=== PATIENT | female | born 1995 | race Caucasian/White ===

== ENCOUNTER 2020-10-03 12:46 | Outpatient (REF) | payer OTHER, SELFPAY ==
[2020-10-03 14:07] LABS: Basophils Absolute Auto 0.1 X10*3/uL (0.0-0.2); Basophils Percent Auto 0.3 % (0-2); Eosinophils Absolute Auto 0.1 X10*3/uL (0.0-0.4); Eosinophils Percent Auto 0.7 % (0-4); Hematocrit 43.3 % (37-47); Hemoglobin 14.3 g/dl (12.0-16.0); Imm Gran Abs Auto 0.08 X10*3/uL (0.00-0.03); Imm Gran Pct Auto 0.4 % (0.0-0.4); Lymphocytes Absolute Auto 2.8 X10*3/uL (1.2-4.9); Lymphocytes Percent Auto 15.3 % (20-40); MANUAL DIFF FLAG SCAN; Mean Corpuscular Hemoglobin 30.4 pg (27.0-33.0); Mean Corpuscular Volume 91.9 fL (80-98); Mean Platelet Volume 10.7 fL (9.4-12.3); Monocytes Absolute Auto 1.6 X10*3/uL (0.1-1.2); Monocytes Percent Auto 8.8 % (2-11); Neutrophils Absolute Auto 13.7 X10*3/uL (2.0-8.3); Neutrophils Percent Auto 74.5 % (45-73); Platelet Count 257 X10*3/uL (160-400); Red Blood Count 4.71 X10*6/uL (4.20-5.50); Red Cell Distribution Width 12.6 % (11.0-16.0); SCAN SMEAR FLAG 1; White Blood Count 18.4 X10*3/uL (4.8-10.8)
[2020-10-03 14:33] LABS: SLIDE REVIEW VERIFIED
[2020-10-03 14:36] LABS: Alanine Aminotransferase 11 U/L (0-31); Albumin Level 4.4 g/dL (3.5-5.0); Alkaline Phosphatase 66 U/L (39-117); Anion Gap 12 (12-20); Aspartate Amino Transferase 13 U/L (5-31); Bilirubin Total 1.1 mg/dL (0.0-1.0); Blood Urea Nitrogen 13 mg/dL (9-16); Calcium 9.4 mg/dL (8.4-10.2); Carbon Dioxide 26 mmol/L (22-29); Chloride 105 mmol/L (96-108); Cholesterol 170 mg/dL; Estimated Glomerular Filt Rate > 60; Glucose Fasting 73 mg/dL (60-99); HDL Cholesterol 52 mg/dL; LDL Cholesterol Calculated 98 mg/dl; Potassium 4.1 mmol/L (3.3-5.1); Sodium 139 mmol/L (135-145); Total Protein 7.1 g/dL (6.5-8.0); Triglycerides 101 mg/dL
[2020-10-03 14:59] LABS: TSH reflex Free T4 0.69 uIU/mL (0.32-4.0)
== END 2020-10-03 12:47 | disposition home or self-care (01) ==
LOC: HO.HMGCLDS 12:46
PROVIDERS: PCP Internal Medicine; Visit Provider Hospitalist
DX: R53.83 Other fatigue (principal); Z83.42 Family history of familial hypercholesterolemia
CPT/HCPCS: 36415; 80053; 80061; 84443; 85025

== ENCOUNTER 2020-10-26 12:00 | Outpatient (RCR) | payer OTHER, SELFPAY ==
--- NOTE | 2020-10-12 12:16 | PC.ADMIT ---
Patient is a 24 year old female who was referred to the PHP program by Dr Tamayo d/t patient's increase in depressive symptoms with increased dissociative episodes and some PTSD sxs. Patient also reports struggling with past trauma history. Patient graduated from [employer] this year and is waiting to take her board exams as she wants to work on her mental health and feel more stable. Patient is alert and oriented x4. Calm and cooperative. Presents with depressed mood, blunted affect. Denied SI or thoughts to harm self. Hx of self harm, last cut herself in June 2020 after she found out her boyfriend at the time cheated on her. She currently is not prescribed medications. She does not have a therapist and prescriber at this time.
[2020-10-12 12:18] VITALS: BMI 23.6
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
--- NOTE | 2020-10-15 14:12 | PC.NURSE ---
Gave patient information regarding PCP at [facility]. Pt limited regarding providers who take her insurance. Patient stated she will call [facility] when she gets off the phone with me. Patient aware that there is walk in hours at [facility] however you need to be a patient before you can utilize walk in hours. Patient also will be referred to [facility] for a therapist and psychiatrist by Macey Villanueva Also checked in with patient regarding her mental status as patient expressed passive SI in group. Patient denied plan or intent. She stated she is safe and plans on being in groups tomorrow. Patient frustrated regarding pain issues and wants to get in to see a PCP.
--- NOTE | 2020-10-15 14:45 | PC.NURSE ---
Case opened in treatment team
--- NOTE | 2020-10-16 14:12 | PC.NURSE ---
Daisy was concerned that she may have a rash and is taking Lamictal. Patient has a history of self harm including cutting, scratching, and purging. She stated yesterday she did not want to purge so she took a hot shower to distract herself however instead of purging she stated she scratched herself as she was practicing harm reduction. Patient stated she did not break the skin however has scratch pineda/lines on her legs and stomach and some small broken blood vessels in the same areas where she scratched herself. Denied any rash anywhere on her body. Stated her skin is reacting to her scratching herself. Sweetie Garner NP is aware. Patient to continue Lamictal. Reviewed coping skills with patient to deal with strong emotions without harming herself. Patient bought a notebook and plans on keeping a journal. Patient stated she is feeling better today and plans on coming to the program tomorrow.
--- NOTE | 2020-10-18 17:32 | P.PNPSP_ITS ---
Subjective Subjective Date of Service: 10/18/20 Reason For Visit: Borderline personality D/o, Depression Interim History: Patient reports doing well with lamictal, which was started last week. She had a minimal rash, which she attributes to scratching, not the medication. She says overall her mood has been somewhat better. She is still interested in TMS, and believes that it will help with borderline personality d/o, PTSD, and the depression. She would like to remain on the lamictal for now. Will continue lamictal 25mg daily for now, and follow-up next week. Script sent to pharmacy. Medication Compliance: Yes Side effects from medications: No Attending Groups: Yes Review of Systems Review of Systems Yes all other systems are reviewed and are negative Mental Status Exam Mental Status Exam Patient Appearance: Well Grooomed and Appropriate Patient Orientation: Person, Place, Time and Situation Level of Consciousness: Awake and Appropriate Patient Behavior: Appropriate and Cooperative Mood Description: Calm and Appropriate Affect Description: Appropriate Patient Cognition Impaired: No Ability to Follow Directions: Excellent Speech Pattern: Clear Memory Description: Intact Hallucinations: None Delusions: Not Present Thought Process: Intact Thought Content: positive for Intact Depressive Symptoms: Increased Anxiety Judgement: Good Diagnostics Vital Signs (24Hr): Body Mass Index 23.6 Assessment & Plan Assessment & Plan (1) Borderline personality disorder: Status: Acute Code(s): F60.3 - Borderline personality disorder Assessment and Plan: Continue to assess. Considering TMS, has read that it can help with BPD. (2) Bipolar II disorder: Status: Acute Code(s): F31.81 - Bipolar II disorder Assessment and Plan: Patient reports doing well with lamictal, which was started last week. She had a minimal rash, which she attributes to scratching, not the medication. She says overall her mood has been somewhat better. She is still interested in TMS, and believes that it will help with borderline personality d/o, PTSD, and the depression. She would like to remain on the lami ctal for now. Will continue lamictal 25mg daily for now, and follow-up next week. Script sent to pharmacy. Certification I certify that partial hospital treatment is medically necessary due to the symptoms and problems resulting from the patient's mental illness and the failure to treat the patient at the partial hospital level of care would likely result in the patient requiring inpatient psychiatric care which could not be prevented at a less intensive level of care. Greater than 50% of the session was spent on counseling and/or coordination of care Discharge Plan Discharge Attending provider: Valerio Turner Medications: New lamotrigine 25 mg tablet 25 mg PO DAILY 7 Days Qty: 7 RF: 0 Telehealth Telehealth Location of provider rendering services: practice address Location of patient: address on file Patient Identification confirmed using: Name, : Yes Telehealth method: video Patient verbally consented to treatment: Yes Patient verbally consented to billing insurance company: Yes Patient informed of any privacy concerns related to visit: Yes Time spent with patient (mins): 15
--- NOTE | 2020-10-22 13:30 | P.PNPSP_ITS ---
Subjective Subjective Date of Service: 10/22/20 Reason For Visit: Borderline personality D/o, Depression Guardianship: No Medical Problems Affecting Mental Status: No Interim History: Daisy reports that she had a bit of a set-back over the eekend, but is doing okay now . She did not elaborate further. She did however state that she wishes to remain on Lamictal, and that she is having no side effects. We discussed dose titration schedule and that after 14 days at 25 mg, dose would be increased to 50 mg daily x2 weeks. She was in agreement with this, and she asked that a script be sent to her pharmacy at [facility] in [place] for 50 mg daily, to start this Thursday. She states that she believes the medication is helping somewhat. No SI or other safety concerns. Daisy has an appointment with Dr. Tamayo on October 29, to further discuss TMS treatment. She states that she believes this will be helpful in treating both her depression and borderline personality disorder. She says she has done research on the subject, and that EMS, according to her research, has not been shown to be any more activating than SSRIs. She says she has been on SSRIs in the past, shows she believes she will be able to tolerate the treatment. She says she plans to remain on Lamictal and pursue TMS. She says after meeting with Dr. Tamayo, if it is advised that she either stop the medication or not pursue TMS, she will consider the options. Script sent to [facility] for lamictal 50mg daily, a 14-day supply, to start October 27. Medication Compliance: Yes Side effects from medications: No Attending Groups: Yes Review of Systems Review of Systems Yes all other systems are reviewed and are negative Mental Status Exam Mental Status Exam Patient Appearance: Well Grooomed and Appropriate Patient Orientation: Person, Place, Time and Situation Level of Consciousness: Appropriate and Alert Patient Behavior: Appropriate and Cooperative Mood Description: Appropriate Affect Description: Appropriate and Flat (flat affect, no mood restriction or lability noted. ) Patient Cognition Impaired: No Ability to Follow Directions: Excellent Speech Pattern: Clear Memory Description: Intact Hallucinations: None (None reported, none noted. ) Delusions: Not Present Thought Process: Intact Thought Content: positive for Intact Judgement: Good Judgement and Insight: Judgment and insight appear grossly intact during the encounter. Diagnostics Vital Signs (24Hr): Body Mass Index 23.6 Assessment & Plan Assessment & Plan (1) Bipolar II disorder: Status: Acute Code(s): F31.81 - Bipolar II disorder Assessment and Plan: No restriction or lability of mood reported, presented with flat affect during encounter. Patient requesting to remain on Lamictal, would like dose increased after the 14 days of 25 mg daily. Script for Lamictal 50 mg daily times 14 days, start October 27, sent to her pharmacy. No safety concerns. Certification I certify that partial hospital treatment is medically necessary due to the symptoms and problems resulting from the patient's mental illness and the failure to treat the patient at the partial hospital level of care would likely result in the patient requiring inpatient psychiatric care which could not be prevented at a less intensive level of care. Greater than 50% of the session was spent on counseling and/or coordination of care Discharge Plan Discharge Attending provider: Valerio Turner Medications: New lamotrigine [Lamictal] 25 mg tablet 50 mg PO DAILY 14 Days Qty: 28 RF: 0 Telehealth Telehealth Location of provider rendering services: practice address Location of patient: address on file Patient Identification confirmed using: Name, : Yes Telehealth method: video Patient verbally consented to treatment: Yes Patient verbally consented to billing insurance company: Yes Patient informed of any privacy concerns related to visit: Yes Time spent with patient (mins): 15
== END 2020-10-29 07:38 | disposition home or self-care (01) ==
LOC: HO.PHPA 12:00
PROVIDERS: Visit Provider Psychiatry & Neurology Psychiatry
DX: F31.81 Bipolar II disorder (principal); F60.3 Borderline personality disorder; F50.9 Eating disorder, unspecified; Z79.899 Other long term (current) drug therapy
CPT/HCPCS: 90791; 90853

== ENCOUNTER 2020-11-01 09:59 | Outpatient (REF) | payer OTHER, SELFPAY ==
[2020-11-01 11:52] LABS: Ethanol < 10 mg/dL
[2020-11-01 13:29] LABS: Amphetamine Screen Urine Not Detected (Not Detect); Barbiturates, Urine Not Detected (Not Detect); Benzodiazepines Screen Urine Not Detected (Not Detect); Cannabinoid Screen Urine Not Detected (Not Detect); Cocaine Screen Urine Not Detected (Not Detect); Opiate Screen Urine Not Detected (Not Detect); Phencyclidine Screen Urine Not Detected (Not Detect)
[2020-11-06 11:32] LABS: EDDP (Methadone Metabolite) negative; Methadone, Urine MS negative
== END 2020-11-01 10:00 | disposition home or self-care (01) ==
LOC: HO.HMGCLDS 09:59
PROVIDERS: Nurse Practitioner Psychiatric/Mental Health; PCP Physician Assistant; Visit Provider Internal Medicine
DX: Z51.81 Encounter for therapeutic drug level monitoring (principal); Z79.899 Other long term (current) drug therapy
CPT/HCPCS: 80307; 80358; 82077

== ENCOUNTER → 2020-12-03 20:25 | Outpatient (REF) | payer OTHER, SELFPAY | LOC: HO.SL 20:25 | PROVIDERS: PCP Physician Assistant; Visit Provider Physician Assistant | DX: G47.33 Obstructive sleep apnea (adult) (pediatric) (principal) | CPT/HCPCS: 95810 ==

== ENCOUNTER 2021-12-14 09:45 | Outpatient (REF) | payer BC, SELFPAY ==
[2021-12-14 10:01] LABS: MANUAL DIFF FLAG NO
[2021-12-14 10:20] LABS: Basophils Absolute Auto 0.1 X10*3/uL (0.0-0.2); Basophils Percent Auto 0.8 % (0-2); Eosinophils Absolute Auto 0.3 X10*3/uL (0.0-0.4); Eosinophils Percent Auto 4.2 % (0-4); Hematocrit 41.8 % (37.0-47.0); Imm Gran Abs Auto 0.01 X10*3/uL (0.00-0.03); Imm Gran Pct Auto 0.1 % (0.0-0.4); Lymphocytes Absolute Auto 2.9 X10*3/uL (1.2-4.9); Lymphocytes Percent Auto 40.9 % (20-40); Mean Corpuscular HGB Conc 33.5 g/dl (31.0-35.0); Mean Corpuscular Hemoglobin 29.9 pg (27.0-33.0); Mean Corpuscular Volume 89.1 fL (80.0-98.0); Mean Platelet Volume 9.8 fL (9.4-12.3); Monocytes Absolute Auto 0.7 X10*3/uL (0.1-1.2); Monocytes Percent Auto 9.1 % (2-11); Neutrophils Absolute Auto 3.2 x10*3/uL (2.0-8.3); Neutrophils Percent Auto 44.9 % (45-73); Platelet Count 296 X10*3/uL (160-400); Red Blood Count 4.69 X10*6/uL (4.20-5.50); Red Cell Distribution Width 12.8 % (11.0-16.0); White Blood Count 7.2 X10*3/uL (4.8-10.8)
[2021-12-14 10:48] LABS: Alanine Aminotransferase 13 U/L (0-31); Albumin Level 4.3 g/dL (3.5-5.0); Alkaline Phosphatase 50 U/L (39-117); Anion Gap 13 (12-20); Aspartate Amino Transferase 14 U/L (5-31); Bilirubin Total 0.8 mg/dL (0.0-1.0); Blood Urea Nitrogen 13 mg/dL (9-16); Carbon Dioxide 27 mmol/L (22-29); Chloride 105 mmol/L (96-108); Estimated Glomerular Filt Rate > 60; Glucose Random 86 mg/dL (60-115); Potassium 4.9 mmol/L (3.3-5.1); Sodium 140 mmol/L (135-145); Total Protein 6.4 g/dL (6.5-8.0)
[2021-12-14 11:10] LABS: TSH reflex Free T4 0.84 uIU/mL (0.32-4.0); Vitamin D 25-OH Total 12.6 ng/mL (>30)
[2021-12-14 11:22] LABS: Folate 10.5 ng/mL (> or = 4.0); Vitamin B12 416 pg/mL (200-900)
== END 2021-12-14 09:46 | disposition home or self-care (01) ==
LOC: HO.LAB 09:45
PROVIDERS: PCP Physician Assistant; Visit Provider Nurse Practitioner Family
DX: R51.9 Headache, unspecified (principal)
CPT/HCPCS: 36415; 80053; 82306; 82607; 82746; 84443; 85025

== ENCOUNTER 2021-12-20 10:29 | Outpatient (REF) | payer BC, SELFPAY ==
--- NOTE | ~2021-12-20 | CT_ITS ---
EXAMINATION: CT HEAD WITHOUT CONTRAST CLINICAL INFORMATION: Headache COMPARISON: None TECHNIQUE: Contiguous axial imaging was performed from the skull base to vertex without intravenous administration of contrast. This CT examination was performed using dose optimization techniques as appropriate, variously including the following: *Automated exposure control *Adjustment of mA and/or kV according to patient size (this includes techniques or standardized protocols for targeted exams where dose is matched to indication/reason for exam; i.e. extremities or head) *Use of iterative reconstruction technique DLP: 687 mGy-cm FINDINGS: There is no acute intra-axial, extra-axial bleed, masses, collection or midline shift. No acute infarction evolution. There is no edema or mass effect. The lateral ventricles are symmetrical in size and configuration without enlargement. The cortical sulci are symmetrical and normal. Bone windows reveal no calvarial abnormality. Bilateral paranasal sinuses and mastoid air cells are well-aerated. No scalp soft tissue abnormality seen. CT/CT head/brain wo con IMPRESSION: No acute intracranial process seen.
== END 2021-12-20 10:30 | disposition home or self-care (01) ==
LOC: HO.CT 10:29
PROVIDERS: PCP Physician Assistant; Visit Provider Nurse Practitioner Family
DX: R51.9 Headache, unspecified (principal)
CPT/HCPCS: 70450

== ENCOUNTER 2023-02-06 14:58 | Outpatient (AMB) | payer BC, SELFPAY ==
[2023-02-06 14:59] VITALS: BP 132/68; PULSE 68; O2SAT 100; BMI 26.1
--- NOTE | 2023-02-06 14:59 | MHC.PC.OV ---
Vital Signs 02/06/23 14:59 Height 5 ft 8 in Weight 172 lb BMI 26.1 BP 132/68 Blood Pressure Location Lt brachial Position Sitting Pulse 68 Pulse Source Pulse Oximeter Temp Source Skin Pulse Oximetry (%) 100 Oxygen Delivery Method Room Air Intake Visit Reasons: Physical exam Intake Note: Patient is here today for a physical. 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 Patient of THELMA Bravo. medical history significant for ADHD, low vitamin-D level, headache-patient reports improving-stable with p.r.n. [id number] Tylenol, enlarged tonsils-was seen by ENT provider plan for tonsillectomy, bipolar disorder-followed by Psychiatry. Patient denies shortness of breath or chest pain. Pap smear normal 2021 with [facility] per patient. Patient will call for eye and dental exams. Up-to-date with immunizations. [facility] Medical History Skin lesion Major depressive disorder, recurrent episode with atypical features Surgical History Hx of breast reduction, elective Family History Mother Mental health disorder Substance use disorder Father Mental health disorder Substance use disorder Social History Household Members: Friend(s) Housing: Apartment Alcohol intake: current Alcohol intake frequency: holidays/special occasions only Patient Tobacco Use Status: Never used Tobacco e-Cigarette/Vaping Use: Never Used Second Hand Smoke Exposure: Yes service: No Current occupational status: employed Current occupation: [employer] Cognitive needs: No Hearing needs: No Vision needs: No Questionnaire PHQ-9 Over the last 2 weeks, how often have you been bothered by any of the following problems? 1. Little interest or pleasure in doing things: not at all 2. Feeling down, depressed, or hopeless: not at all 3. Trouble falling or staying asleep, or sleeping too much: not at all 4. Feeling tired or having little energy: not at all 5. Poor appetite or overeating: not at all 6. Feeling bad about yourself - or that you are a failure or have let yourself or your family down: not at all 7. Trouble concentrating on things, such as reading the newspaper or watching television: not at all 8. Moving or speaking so slowly that other people could have noticed. Or the opposite - being so fidgety or restless that you have been moving around a lot more than usual: not at all 9. Thoughts that you would be better off or of hurting yourself in some way: not at all Total score: 0 Depression Screening Interpretation: Negative Depression Screening Done: Yes 63603 - PHQ-9 Billing: Yes Source: Developed by Drs. Carlos Fofana, Akilah Reyes, Robin Cox and colleagues, with an educational susan from [employer]. Thrive Questionnaire Date Thrive assessed: 02/06/23 I am a: Patient What is your living situation today?: I have a steady place to live Within the past 12 months, did the food you bought not last and you didn't have the money to get more?: Never true Within the past 12 months, did you worry whether your food would run out before you got money to buy more?: Never true Do you have trouble paying for medicines?: No Do you have trouble getting transportation to medical appointments?: No Do you have trouble paying your heating and electricity bill?: No Do you have trouble taking care of your child, family member or friend?: No Do you have trouble with day-to-day activities such as bathing, preparing meals, shopping, managing finances, etc.?: No Are you currently unemployed and looking for a job?: No Are you interested in more education?: No Currently or been in a relationship where the following occur: no concerns reported AUDIT C Alcohol Use Questionnaire (AUDIT-C) 1. How often do you have a drink containing alcohol?: Monthly or less 2. How many drinks containing alcohol do you have on a typical day when you are drinking?: 3 or 4 Total Score: 2 Score Reviewed/Action Taken: No JAVED-7 AMB Questionnaire JAVED-7 Date JAVED - 7 assessed: 02/06/23 Feeling nervous, anxious, or on edge: 0 = Not at all Not being able to stop or control worryin = Not at all Worrying too much about different things: 0 = Not at all Trouble relaxin = Not at all Being so restless that it is hard to sit still: 0 = Not at all Becoming easily annoyed or irritable: 0 = Not at all Feeling afraid as if something awful might happen: 0 = Not at all Total JAVED-7 score (0-4 normal; 5-9 mild; 10-14 moderate; 15-21 severe): 0 Source: Developed by Drs. Carlos Fofana, Akilah Reyes, Robin Cox and colleagues, with an educational susan from [employer]. JAVED-7 Assessment Billing JAVED-7 Assessment Tool: JAVED-7 Assessment 70743 Review of Systems Const Denies body aches, Denies chills, Denies fever(s) and Reports headache(s) (Intermittent) Eyes Denies change in vision ENT Denies dizziness, Denies otalgia, Reports headache(s) (Intermittent), Denies nasal discharge, Denies sinus pain and Denies sore throat Card Denies chest pain, Denies edema, Denies lightheadedness and Denies dyspnea Resp Denies dyspnea and Denies wheezing GI Denies abdominal pain, Denies constipation, Denies diarrhea, Denies nausea and Denies vomiting Denies dysuria Musc Denies myalgias Skin/Breast Denies rash Neuro Denies dizziness and Reports headache(s) (Intermittent) Aller/Immun Denies wheezing Physical exam (Primary Care) Vital Signs: Last Vital Signs Pulse 68 02/06/23 14:59 BP 132/68 02/06/23 14:59 Pulse Ox 100 02/06/23 14:59 Oxygen Delivery Method Room Air 02/06/23 14:59 BMI result Body Mass Index 26.1 Tobacco/Smoking Status: Tobacco use Status Tobacco use date assessed 02/06/23 02/06/23 15:01 Patient Tobacco Use Status Never used Tobacco 02/06/23 15:01 Tobacco use type 10/23/20 08:34 e-Cigarette/Vaping Use Never Used 02/06/23 15:01 PHQ-9: PHQ-9 Score PHQ-9: Total score 0 02/06/23 15:01 Depression Screening Interpretation: Negative Thrive Assessment: Date of Thrive Assessment Date Thrive assessed 02/06/23 02/06/23 15:01 Currently or been in a relationship where the following occur: no concerns reported Const General: cooperative and no acute distress Orientation/consciousness: patient oriented x3 HENMT Head: Yes normocephalic and Yes atraumatic Ears: TM's normal bilaterally Face and sinus: Yes sinuses nontender Mouth: oropharynx normal and moist mucous membranes Throat: Yes posterior oropharynx normal and Yes other (Enlarged tonsils) Eyes General: appearance normal, both eyes and all related structures Pupils: Equal, round and reactive pupils present EOM: EOMs intact bilaterally Neck Neck: Yes normal visual inspection, Yes full ROM and Yes no lymphadenopathy Thyroid: Thyroid normal Resp Effort & Inspection: normal respiratory effort and able to speak in complete sentences Auscultation: clear to auscultation bilaterally, no crackles, no rales, no rhonchi and no wheezes Cardio Rate: regular rate Rhythm: regular rhythm Heart sounds: S1 normal heart sound present, S2 normal heart sound present and no murmurs GI Palpation (GI): Soft to palpation, not firm, nontender, no guarding, not rigid and no hepatosplenomegaly Auscultation: normal bowel sounds General: No CVA tenderness Back/Spine/Pelvis Back: No CVA tenderness Skin General skin exam: no rashes or lesions noted Neuro General: patient oriented x3 Cranial nerves: Yes Equal, round and reactive pupils present Gait exam (Neuro): Normal gait present Extrem General: Yes full ROM and No edema Office Procedures Flu Questionnaire Does the patient have a severe egg allergy?: No Does the patient have severe life threatening allergies?: No Does the patient have a fever or illness today?: No Has the patient ever had Guillain-[place] Syndrome?: No Has the patient ever had any past reaction to a flu shot?: No Immunizations flu vacc [id number] 6mos up(PF) 60 mcg(15 mcgx4)/0.5 mL IM syringe Performing Provider: RICKI Rodriguez Performing Location: [facility] Administered by: ARIANNE Smart on 02/06/23 15:15 Dose Route Admin Location Dispensed Lot Number Expiration Date [employer] 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 0.5 mL IM Left Deltoid 0.5 mL [id number] 11/01/23 36700-067-29 [employer] VIS Given Date VIS Provided VIS Publication Date 02/06/23 Single Vaccine 20 Eligibility Eligibility Date Funding Source Not VFC Eligible 02/06/23 Private Assessment and Plan Assessment & Plan (1) ADHD: Code(s): F90.9 - Attention-deficit hyperactivity disorder, unspecified type Plan: Followed by Psychiatry and on lisdexamfetamine (2) Low vitamin D level: Code(s): R79.89 - Other specified abnormal findings of blood chemistry Plan: Will check vitamin-D level (3) Headache: Code(s): R51.9 - Headache, unspecified Plan: Stable with p.r.n. [id number] Tylenol (4) Annual physical exam: Code(s): Z00.00 - Encounter for general adult medical examination without abnormal findings Plan: Repeat in 1 year (5) Bipolar II disorder: Code(s): F31.81 - Bipolar II disorder Plan: Followed by Psychiatry and on Lamotrigine Orders: Orders Vitamin D 25-OH Total Today R79.89 - Other specified abnormal findings of blood chemistry Vitamin B12 and Folate Today Z00.00 - Encounter for general adult medical examination without abnormal findings Comprehensive Met. Panel Today Z00.00 - Encounter for general adult medical examination without abnormal findings Influenza [id number] Immunization Today Z23 - Encounter for immunization TSH reflex Free T4 Today Z00.00 - Encounter for general adult medical examination without abnormal findings Complete Blood Count Auto Diff Today Z00.00 - Encounter for general adult medical examination without abnormal findings Coding Level of Care Code Est Pt Prev Care 18-39y(72834) Diagnoses ADHD F90.9 Low vitamin D level R79.89 Headache R51.9 Annual physical exam Z00.00 Bipolar II disorder F31.81 Additional Codes JAVED-7 Assessment Billing - JAVED-7 Assessment Tool: JAVED-7 Assessment 04586 ([id number])
== END 2023-02-06 15:27 | disposition home or self-care (01) ==
PROVIDERS: PCP Physician Assistant; Visit Provider Nurse Practitioner Family
DX: Z00.00 Encounter for general adult medical examination without abnormal findings (principal); F90.9 Attention-deficit hyperactivity disorder, unspecified type; F31.81 Bipolar II disorder; Z23 Encounter for immunization; R79.89 Other specified abnormal findings of blood chemistry; R51.9 Headache, unspecified
CPT/HCPCS: 90471; 90686; 99395

== ENCOUNTER 2023-05-30 10:16 | Outpatient (REF) | payer BC, SELFPAY ==
[2023-05-30 11:20] LABS: MANUAL DIFF FLAG NO
[2023-05-30 11:40] LABS: Basophils Absolute Auto 0.1 X10*3/uL (0.0-0.2); Basophils Percent Auto 1.2 % (0-2); Eosinophils Absolute Auto 0.3 X10*3/uL (0.0-0.4); Eosinophils Percent Auto 3.8 % (0-4); Hematocrit 42.6 % (37.0-47.0); Hemoglobin 14.3 g/dl (12.0-16.0); Imm Gran Abs Auto 0.02 X10*3/uL (0.00-0.03); Imm Gran Pct Auto 0.3 % (0.0-0.4); Lymphocytes Absolute Auto 2.7 X10*3/uL (1.2-4.9); Mean Corpuscular HGB Conc 33.6 g/dl (31.0-35.0); Mean Corpuscular Hemoglobin 31.1 pg (27.0-33.0); Mean Corpuscular Volume 92.6 fL (80.0-98.0); Monocytes Absolute Auto 0.7 X10*3/uL (0.1-1.2); Monocytes Percent Auto 9.2 % (2-11); Neutrophils Percent Auto 50.5 % (45-73); Platelet Count 270 X10*3/uL (160-400); Red Cell Distribution Width 12.4 % (11.0-16.0); White Blood Count 7.8 X10*3/uL (4.8-10.8)
[2023-05-30 12:17] LABS: Alanine Aminotransferase 9 U/L (0-31); Albumin Level 4.2 g/dL (3.5-5.0); Alkaline Phosphatase 53 U/L (39-117); Anion Gap 12 (12-20); Aspartate Amino Transferase 12 U/L (5-31); Bilirubin Total 0.8 mg/dL (0.0-1.0); Blood Urea Nitrogen 14 mg/dL (9-16); Calcium 9.2 mg/dL (8.4-10.2); Carbon Dioxide 25 mmol/L (22-29); Chloride 108 mmol/L (96-108); Estimated Glomerular Filt Rate > 60; Glucose Random 91 mg/dL (60-115); Potassium 4.1 mmol/L (3.3-5.1); Sodium 141 mmol/L (135-145); Total Protein 6.5 g/dL (6.5-8.0)
[2023-05-30 12:22] LABS: TSH reflex Free T4 1.61 uIU/mL (0.32-4.0); Vitamin D 25-OH Total 31.4 ng/mL (>30)
[2023-05-30 12:33] LABS: Folate 9.5 ng/mL (> or = 4.0); Vitamin B12 410 pg/mL (200-900)
== END 2023-05-30 10:17 | disposition home or self-care (01) ==
LOC: HO.HMGCLDS 10:16
PROVIDERS: PCP Physician Assistant; Visit Provider Nurse Practitioner Family
DX: Z00.00 Encounter for general adult medical examination without abnormal findings (principal); R79.89 Other specified abnormal findings of blood chemistry
CPT/HCPCS: 36415; 80053; 82306; 82607; 82746; 84443; 85025

== ENCOUNTER 2024-02-11 14:18 | Outpatient (AMB) | payer BC, SELFPAY ==
--- NOTE | 2024-02-11 14:26 | A.OFFPC_ITS ---
Vital Signs 02/11/24 14:37 Height 5 ft 8 in Weight 192 lb 2 oz BMI 29.2 BP 110/62 Blood Pressure Location Lt brachial Position Sitting Pulse 64 Pulse Source Pulse Oximeter Pulse Oximetry (%) 97 Oxygen Delivery Method Room Air Intake Visit Reasons: Annual Exam Intake Note: Patient is here today for a physical. 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 Patient has a past medical history significant for major depressive disorder, bipolar disorder type 2.. Patient recently underwent a tonsillectomy and doing well. Bipolar disorder: She continues to follow in mental health med provider and feels she is stable on her current dose of Lamictal. She is looking for a new psychiatrist as her psychiatrist is retiring. .. :ADHD: Has ADHD though is not medicated at this time. 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 Vaccines: Up-to-date with tetanus, up-to-date with flu vaccine , UTD with COVID vac ( pfizer shot) [facility] Medical History (Updated 02/11/24 @ 14:57 by Kishan Bravo PA-C) Skin lesion Major depressive disorder, recurrent episode with atypical features Surgical History (Updated 02/11/24 @ 14:57 by Kishan Bravo PA-C) History of tonsillectomy Hx of breast reduction, elective Family History Mother Mental health disorder Substance use disorder Father Mental health disorder Substance use disorder Social History (Updated 02/11/24 @ 14:45 by Kishan Bravo PA-C) Household Members: Friend(s) Housing: Apartment Alcohol intake: current Alcohol intake frequency: a few times a month Patient Tobacco Use Status: Never used Tobacco e-Cigarette/Vaping Use: Never Used Second Hand Smoke Exposure: Yes Substance Use Type: Marijuana service: No Current occupational status: employed Current occupation: [employer] Cognitive needs: No Hearing needs: No Vision needs: No Questionnaire PHQ-9 Over the last 2 weeks, how often have you been bothered by any of the following problems? 1. Little interest or pleasure in doing things: not at all 2. Feeling down, depressed, or hopeless: not at all 3. Trouble falling or staying asleep, or sleeping too much: not at all 4. Feeling tired or having little energy: not at all 5. Poor appetite or overeating: not at all 6. Feeling bad about yourself - or that you are a failure or have let yourself or your family down: not at all 7. Trouble concentrating on things, such as reading the newspaper or watching television: not at all 8. Moving or speaking so slowly that other people could have noticed. Or the opposite - being so fidgety or restless that you have been moving around a lot more than usual: not at all 9. Thoughts that you would be better off or of hurting yourself in some way: not at all Total score: 0 Depression Screening Interpretation: Negative (The patient has a therapist and is currently receiving treatment.) Depression Screening Done: Yes 38244 - PHQ-9 Billing: Yes Source: Developed by Drs. Carlos Fofana, Akilah Reyes, Robin Cox and colleagues, with an educational susan from [email or web address]. Thrive Questionnaire Date Thrive assessed: 02/11/24 I am a: Patient What is your living situation today?: I have a steady place to live Within the past 12 months, did the food you bought not last and you didn't have the money to get more?: Never true Within the past 12 months, did you worry whether your food would run out before you got money to buy more?: Never true Do you have trouble paying for medicines?: No Do you have trouble getting transportation to medical appointments?: No Do you have trouble paying your heating and electricity bill?: No Do you have trouble taking care of your child, family member or friend?: No Do you have trouble with day-to-day activities such as bathing, preparing meals, shopping, managing finances, etc.?: No Are you currently unemployed and looking for a job?: No Are you interested in more education?: No Please select the resources that you would like help with: None Currently or been in a relationship where the following occur: No concerns reported THRIVE Score: 0 AUDIT C Alcohol Use Questionnaire (AUDIT-C) 1. How often do you have a drink containing alcohol?: 2-4 times a month 2. How many drinks containing alcohol do you have on a typical day when you are drinking?: 3 or 4 3. How often do you have six or more drinks on one occasion?: Less than monthly Total Score: 4 JAVED-7 AMB Questionnaire JAVED-7 Date JAVED - 7 assessed: 02/11/24 Feeling nervous, anxious, or on edge: 1 = Several days Not being able to stop or control worryin = Not at all Worrying too much about different things: 1 = Several days Trouble relaxin = Not at all Being so restless that it is hard to sit still: 0 = Not at all Becoming easily annoyed or irritable: 1 = Several days Feeling afraid as if something awful might happen: 0 = Not at all Total JAVED-7 score (0-4 normal; 5-9 mild; 10-14 moderate; 15-21 severe): 3 Source: Developed by Drs. Carlos Fofana, Akilah Reyes, Robin Cox and colleagues, with an educational susan from [email or web address]. JAVED-7 Assessment Billing JAVED-7 Assessment Tool: JAVED-7 Assessment 00596 Review of Systems Const Denies body aches, Denies chills, Denies excessive sweating, Denies fatigue, Denies fever(s) and Denies headache(s) Eyes Denies blurry vision ENT Denies dysphagia, Denies vertigo, Denies dizziness, Denies headache(s), Denies hearing loss and Denies tinnitus Card Denies chest pain, Denies chest pain with activity, Denies syncope, Denies irregular heart rhythm and Denies dyspnea Resp Denies chest congestion, Denies cough, Denies hemoptysis, Denies dyspnea and Denies wheezing GI Denies abdominal pain, Denies melena, Denies hematochezia, Denies coffee ground emesis, Denies dysphagia, Denies diarrhea, Denies nausea and Denies vomiting Denies urinary frequency, Denies dysuria, Denies urinary hesitancy and Denies urinary urgency Musc Denies arthralgias, Denies limited range of motion, Denies muscle cramps and Denies muscle weakness Skin/Breast Denies rash and Denies skin ulcer Neuro Denies Abnormal speech present, Denies confusion, Denies vertigo, Denies dizziness, Denies syncope, Denies headache(s), Denies memory loss and Denies seizure-like activity Psych Denies anxiety, Denies confusion, Denies depression, Denies memory loss, Denies panic attacks and Denies paranoia Endo Denies excessive sweating, Denies fatigue, Denies flushing, Denies polydipsia and Denies polyuria Aller/Immun Denies wheezing Physical exam (Primary Care) Vital Signs: Last Vital Signs Pulse 64 02/11/24 14:37 BP 110/62 02/11/24 14:37 Pulse Ox 97 02/11/24 14:37 Oxygen Delivery Method Room Air 02/11/24 14:37 BMI result Body Mass Index 29.2 Tobacco/Smoking Status: Tobacco use Status Tobacco use date assessed 02/11/24 02/11/24 14:27 Patient Tobacco Use Status Never used Tobacco 02/11/24 14:27 Tobacco use type 10/23/20 08:34 e-Cigarette/Vaping Use Never Used 02/11/24 14:27 PHQ-9: PHQ-9 Score PHQ-9: Total score 0 02/11/24 14:27 Depression Screening Interpretation: Negative (The patient has a therapist and is currently receiving treatment.) Thrive Assessment: Date of Thrive Assessment Date Thrive assessed 02/11/24 02/11/24 14:27 Currently or been in a relationship where the following occur: No concerns reported Const General: cooperative, comfortable, no acute distress, alert and awake; No confusion Orientation/consciousness: oriented to person, oriented to place, patient oriented x3 and No confusion HENMT Head: Yes normocephalic Ears: external ears normal and TM's normal bilaterally Face and sinus: No sinus tenderness Mouth: Normal oral and palatal mucosa present and tongue normal Teeth and gingiva: dentition normal and gingiva normal Throat: Yes posterior oropharynx normal, Yes tonsils normal and Yes uvula midline Eyes Conjunctivae: conjunctivae normal Sclerae: sclerae normal Pupils: Equal, round and reactive pupils present EOM: EOMs intact bilaterally Direct Ophthalmoscopy: No no photophobia Neck Neck: Yes no lymphadenopathy, No tender and Yes no JVD Thyroid: Thyroid normal Carotids: no bruits Chest Chest palpation & inspection: no tenderness Resp Effort & Inspection: normal respiratory effort, no audible wheezes, not labored and no stridor Auscultation: no crackles, no rales, no rhonchi and no wheezes Cardio Jugular venous distension: no JVD Rate: regular rate, not bradycardic and not tachycardic Rhythm: regular rhythm Bruits: no carotid bruits Peripheral pulses: Peripheral pulses 2+ throughout GI Inspection: Yes normal to inspection, No abdominal wall ecchymosis and No visible herniation Palpation (GI): Soft to palpation, nontender, no guarding, not rigid and No hepatosplenomegaly present Auscultation: normoactive bowel sounds General: Yes no CVA tenderness Back/Spine/Pelvis Back: no CVA tenderness and No back tenderness Cervical Spine: cervical ROM normal Thoracic/Lumbar Spine: thoracic and lumbar spine normal to inspection, straight leg raise negative bilaterally, No thoraco-lumbar ROM limited and No lumbar spinal tenderness Skin Lesions: no lesions Rashes: no rashes Wounds: no wounds Neuro General: oriented to person, oriented to place, patient oriented x3, CN's II-XI intact bilaterally and No confusion Cranial nerves: Yes Equal, round and reactive pupils present and Yes Normal accommodation reflex present Cognition (Neuro): normal cognition Speech: No Abnormal speech present Gait exam (Neuro): Normal gait present Motor exam (neuro): 5/5 motor strength present throughout Extrem Right upper extremity: full ROM; no cyanosis Left upper extremity: full ROM; no cyanosis Right lower extremity: no edema Left lower extremity: no edema Psych Appearance: grossly normal Mental Status: mental status grossly normal Affect: normal affect Attitude: cooperative Thought process: Normal thought process present Office Procedures Flu Questionnaire Does the patient have a severe egg allergy?: No Does the patient have severe life threatening allergies?: No Does the patient have a fever or illness today?: No Has the patient ever had Guillain-[place] Syndrome?: No Has the patient ever had any past reaction to a flu shot?: No Immunizations Fluarix Triv [id number] (PF) 45 mcg (15 mcg x 3)/0.5 mL IM syringe Performing Provider: Kishan Bravo PA-C Performing Location: [facility] Administered by: DENA Eddy on 02/11/24 14:36 Dose Route Admin Location Dispensed Lot Number Expiration Date NDC Collect On Delivery Clerk 0.5 mL IM Left Deltoid 0.5 mL [id number] 10/31/24 56497-599-00 [employer] VIS Given Date VIS Provided VIS Publication Date 02/11/24 Single Vaccine 20 Eligibility Eligibility Date Funding Source Not [facility] Eligible 02/11/24 Private Coding Level of Care Code Est Pt Prev Care [id number]([id number]) Diagnoses Annual physical exam Z00.00 Bipolar II disorder F31.81 Screening for diabetes mellitus (DM) Z13.1 Vitamin D deficiency E55.9 Borderline personality disorder F60.3 Additional Codes JAVED-7 Assessment Billing - JAVED-7 Assessment Tool: JAVED-7 Assessment 47776 ([id number]) Assessment & Plan Assessment & Plan (1) Annual physical exam: Code(s): Z00.00 - Encounter for general adult medical examination without abnormal findings Category: Medical Plan: As per HPI (2) Bipolar II disorder: Code(s): F31.81 - Bipolar II disorder Category: Medical Plan: Patient has bipolar type 2 disorder which has been well controlled for many years. She continues on 150 mg a lamotrigine with good effect. She is now looking for a new psychiatrist as her psychiatrist is retiring. She is also thinking about doing new modality of therapy to help her with her mental health. (3) Screening for diabetes mellitus (DM): Code(s): Z13.1 - Encounter for screening for diabetes mellitus Category: Medical Plan: As per HPI (4) Vitamin D deficiency: Code(s): E55.9 - Vitamin D deficiency, unspecified Category: Medical Plan: Patient does have a history of vitamin-D deficiency. Will recheck her vitamin- D. (5) Borderline personality disorder: Code(s): F60.3 - Borderline personality disorder Category: Medical Plan: As above patient interested in a new modality of therapy. Continues with mood stabilization with the lamotrigine. Orders: Orders Influenza [id number] Immunization Today Z23 - Encounter for immunization Vitamin D 25-OH Total Today R79.89 - Other specified abnormal findings of blood chemistry Lamotrigine Lamictal Today F31.81 - Bipolar II disorder Lipid Panel Today Z83.42 - Family history of familial hypercholesterolemia Comprehensive [place]. Panel Fast Today Z13.1 - Encounter for screening for diabetes mellitus Complete Blood Count no Diff Today Z13.1 - Encounter for screening for diabetes mellitus
[2024-02-11 14:37] VITALS: BP 110/62; PULSE 64; O2SAT 97; BMI 29.2
== END 2024-02-11 14:56 | disposition home or self-care (01) ==
PROVIDERS: PCP Physician Assistant; Visit Provider Physician Assistant
DX: Z00.00 Encounter for general adult medical examination without abnormal findings (principal); F31.81 Bipolar II disorder; F60.3 Borderline personality disorder; Z13.1 Encounter for screening for diabetes mellitus; E55.9 Vitamin D deficiency, unspecified

== ENCOUNTER → 2024-02-11 14:18 | Outpatient (BNVA) | payer BC, SELFPAY | PROVIDERS: PCP Physician Assistant; Visit Provider Physician Assistant | DX: Z00.00 Encounter for general adult medical examination without abnormal findings (principal); F31.81 Bipolar II disorder; E55.9 Vitamin D deficiency, unspecified; F60.3 Borderline personality disorder; Z79.899 Other long term (current) drug therapy; Z23 Encounter for immunization | CPT/HCPCS: 90471; 90656; 96127 ==

== ENCOUNTER 2025-02-16 15:51 | Outpatient (AMB) | payer BC, SELFPAY ==
--- OUTSIDE RECORDS SUMMARY | 2023-12-27 17:30 | XMS_ITS ---
Author Organization [facility] Address [address] [place], [place] [id number] Care Team Providers Care Manganese Breaker Name Role Phone Kishan Woodard Primary Care Provider Regina Cheng Unavailable [phone] Migration, Provider Unavailable Unavailable [facility]ISIT [facility] Encounter Medications Medication SIG (Take, Route, Frequency, Duration) Notes Start Date End Date Status lamoTRIgine *Please review a nd pick correct strength-formulatio n from Medispan options. If intended option is not shown, discontinue and re-order from Quick Search* Active Vyvanse *Please review a nd pick correct strength-formulatio n from Medispan options. If intended option is not shown, discontinue and re-order from Quick Search* Unknown Fluticasone Propionate (Inhal) *Please review and pick correct strength-formulatio n from Medispan options. If intended option is not shown, discontinue and re-order from Quick Search* Unknown Cetirizine HCl *Please review a nd pick correct strength-formulatio n from Medispan options. If intended option is not shown, discontinue and re-order from Quick Search* Unknown Vitamin B-12 *Please review a nd pick correct strength-formulatio n from Medispan options. If intended option is not shown, discontinue and re-order from Quick Search* Unknown Encounters Encounter Location Date Provider Diagnosis [facility] [address] [place], [place] [id number] 12/27/2023 Provider Migration Plan Of Treatment No Information Progress Notes * Donny ZUNIGAOB:[birth year] (29 yo F)Acc No.[id number]:12/27/2023 Patient: Daisy Concepcion Provider: :1995 A ge:28 Y S ex:Female Date:12/27/2023 Address:[address] [place] [address], [address], [phone] Pcp:THELMA Feldman Subjective: * Chief Complaints: * M [facility] To [facility] Conversion Encounter * Medications: T akinglamoTRIgine , Notes to Pharmacist: *Please review and pick correct strength-formulation from Medispan options. If intended option is not shown, discontinue and re-order from Quick Search*Taking lamoTRIgine , Notes to Pharmacist: *Please review and pick correct strength-formulation from Medispan options. If intended option is not shown, discontinue and re-order from Quick Search*UnknownVitamin B-12 , Notes to Pharmacist: *Please review and pick correct strength-formulation from Medispan options. If intended option is not shown, discontinue and re-order from Quick Search*Cetirizine HCl , Notes to Pharmacist: *Please review and pick correct strength-formulation from Medispan options. If intended option is not shown, discontinue and re-order from Quick Search*Fluticasone Propionate (Inhal) , Notes to Pharmacist: *Please review and pick correct strength-formulation from Medispan options. If intended option is not shown, discontinue and re-order from Quick Search*Vyvanse , Notes to Pharmacist: *Please review and pick correct strength-formulation from Medispan options. If intended option is not shown, discontinue and re-order from Quick Search*Unknown Vitamin B-12 , Notes to Pharmacist: *Please review and pick correct strength-formulation from Medispan options. If intended option is not shown, discontinue and re-order from Quick Search*Unknown Cetirizine HCl , Notes to Pharmacist: *Please review and pick correct strength-formulation from Medispan options. If intended option is not shown, discontinue and re-order from Quick Search*Unknown Fluticasone Propionate (Inhal) , Notes to Pharmacist: *Please review and pick correct strength-formulation from Medispan options. If intended option is not shown, discontinue and re-order from Quick Search*Unknown Huang , Notes to Pharmacist: *Please review and pick correct strength-formulation from Medispan options. If intended option is not shown, discontinue and re-order from Quick Search* * Electronic signature of Prov ider Migration on 02/16/2025 at 07:33 PM EDT Sign off status: Pending * Provider: Date: 0 12/27/2023 Generated for Nick alvarado/Allie/Heronitting on: 1 07:33 PM EDT
[2025-02-16 15:54] VITALS: BP 122/78; PULSE 66; O2SAT 98; BMI 29.1
--- NOTE | 2025-02-16 15:54 | A.OFFPC_ITS ---
Vital Signs 02/16/25 15:54 Height 5 ft 8 in Weight 191 lb 6 oz BMI 29.1 BP 122/78 Blood Pressure Location Lt brachial Position Sitting Pulse 66 Pulse Source Pulse Oximeter Pulse Oximetry (%) 98 Oxygen Delivery Method Room Air Intake Visit Reasons: Annual Exam National Business Director Required: No Accompanied by: Self / Same As Patient Allergies No Known Allergies Allergy (Verified 02/16/25 16:01) Medication List - Last Reconciled 02/16/25 by Kishan Bravo PA-C No Known Home Meds Tobacco use date assessed: 02/16/25 Dental Screening Dental Screen Date: 02/16/25 Did you have a dental visit in the last 12 months?: Yes Did you have a dental problem in the last 6 months where you did not have access to dental care?: No Was dental information given to patient?: Patient has dentist HPI Annual Exam HPI Details Patient is a 29-year-old female here today for annual physical. Patient has a past medical history significant for major depressive disorder, bipolar disorder type 2.. Bipolar disorder: Continues to follow psychiatrist, she has gotten off of mood stabilization under the direct supervision of her psychiatrist and now on no medication at all and feels fairly stable.. .. :ADHD: Has ADHD though is not medicated at this time. 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 Goes to [employer] Vaccines: Up-to-date with tetanus, up-to-date with flu vaccine , UTD with COVID vac ( pfizer shot) [facility] Medical History Skin lesion Major depressive disorder, recurrent episode with atypical features Surgical History History of tonsillectomy Hx of breast reduction, elective Family History Mother Mental health disorder Substance use disorder Father Mental health disorder Substance use disorder Social History Household Members: Friend(s) Housing: Apartment Alcohol intake: current Alcohol intake frequency: a few times a month Patient Tobacco Use Status: Never used Tobacco e-Cigarette/Vaping Use: Never Used Second Hand Smoke Exposure: Yes Substance Use Type: Marijuana service: No Current occupational status: employed 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 1. Little interest or pleasure in doing things: not at all 2. Feeling down, depressed, or hopeless: several days 3. Trouble falling or staying asleep, or sleeping too much: several days 4. Feeling tired or having little energy: more than half the days 5. Poor appetite or overeating: several days 6. Feeling bad about yourself - or that you are a failure or have let yourself or your family down: not at all 7. Trouble concentrating on things, such as reading the newspaper or watching television: not at all 8. Moving or speaking so slowly that other people could have noticed. Or the opposite - being so fidgety or restless that you have been moving around a lot more than usual: not at all 9. Thoughts that you would be better off or of hurting yourself in some way: not at all Total score: 5 Depression Screening Interpretation: Positive Depression Screening Follow-up: Existing condition Depression Screening Done: Yes 85802 - PHQ-9 Billing: Yes Source: Developed by Drs. Carlos Fofana, Akilah Reyes, Robin Cox and colleagues, with an educational susan from [employer]. Thrive Questionnaire Date Thrive assessed: 02/16/25 I am a: Patient What is your living situation today?: I have a steady place to live Within the past 12 months, did the food you bought not last and you didn't have the money to get more?: Never true Within the past 12 months, did you worry whether your food would run out before you got money to buy more?: Never true Do you have trouble paying for medicines?: No Do you have trouble getting transportation to medical appointments?: No Do you have trouble paying your heating and electricity bill?: No Do you have trouble taking care of your child, family member or friend?: No Do you have trouble with day-to-day activities such as bathing, preparing meals, shopping, managing finances, etc.?: No Are you currently unemployed and looking for a job?: No Are you interested in more education?: No Please select the resources that you would like help with: None Currently or been in a relationship where the following occur: No concerns reported THRIVE Score: 0 AUDIT C Alcohol Use Questionnaire (AUDIT-C) 1. How often do you have a drink containing alcohol?: 2-4 times a month 2. How many drinks containing alcohol do you have on a typical day when you are drinking?: 3 or 4 3. How often do you have six or more drinks on one occasion?: Never Total Score: 3 JAVED-7 AMB Questionnaire JAVED-7 Date JAVED - 7 assessed: 02/16/25 Feeling nervous, anxious, or on edge: 1 = Several days Not being able to stop or control worryin = Not at all Worrying too much about different things: 0 = Not at all Trouble relaxin = Several days Being so restless that it is hard to sit still: 0 = Not at all Becoming easily annoyed or irritable: 1 = Several days Feeling afraid as if something awful might happen: 0 = Not at all Total JAVED-7 score (0-4 normal; 5-9 mild; 10-14 moderate; 15-21 severe): 3 Source: Developed by Drs. Carlos Fofana, Akilah Reyes, Robin Cox and colleagues, with an educational susan from [employer]. JAVED-7 Assessment Billing JAVED-7 Assessment Tool: JAVED-7 Assessment 79285 Review of Systems Const Denies body aches, Denies chills, Denies excessive sweating, Denies fatigue, Denies fever(s) and Denies headache(s) Eyes Denies blurry vision ENT Denies dysphagia, Denies vertigo, Denies dizziness, Denies headache(s), Denies hearing loss and Denies tinnitus Card Denies chest pain, Denies chest pain with activity, Denies syncope, Denies irregular heart rhythm and Denies dyspnea Resp Denies chest congestion, Denies cough, Denies hemoptysis, Denies dyspnea and Denies wheezing GI Denies abdominal pain, Denies melena, Denies hematochezia, Denies coffee ground emesis, Denies dysphagia, Denies diarrhea, Denies nausea and Denies vomiting Denies urinary frequency, Denies dysuria, Denies urinary hesitancy and Denies urinary urgency Musc Denies arthralgias, Denies limited range of motion, Denies muscle cramps and Denies muscle weakness Skin/Breast Denies rash and Denies skin ulcer Neuro Denies Abnormal speech present, Denies confusion, Denies vertigo, Denies dizziness, Denies syncope, Denies headache(s), Denies memory loss and Denies seizure-like activity Psych Denies anxiety, Denies confusion, Denies depression, Denies memory loss, Denies panic attacks and Denies paranoia Endo Denies excessive sweating, Denies fatigue, Denies flushing, Denies polydipsia and Denies polyuria Aller/Immun Denies wheezing Physical exam (Primary Care) Vital Signs: Last Vital Signs Pulse 66 02/16/25 15:54 BP 122/78 02/16/25 15:54 Pulse Ox 98 02/16/25 15:54 Oxygen Delivery Method Room Air 02/16/25 15:54 BMI result Body Mass Index 29.1 Tobacco/Smoking Status: Tobacco use Status Tobacco use date assessed 02/16/25 02/16/25 15:59 Patient Tobacco Use Status Never used Tobacco 02/16/25 15:59 Tobacco use type 10/23/20 08:34 e-Cigarette/Vaping Use Never Used 02/16/25 15:59 PHQ-9: PHQ-9 Score PHQ-9: Total score 5 02/16/25 16:16 Depression Screening Interpretation: Positive Depression Screening Follow-up: Existing condition Thrive Assessment: Date of Thrive Assessment Date Thrive assessed 02/16/25 02/16/25 15:59 Currently or been in a relationship where the following occur: No concerns reported Const General: cooperative, comfortable, no acute distress, alert and awake; No confusion Orientation/consciousness: oriented to person, oriented to place, patient oriented x3 and No confusion HENMT Head: Yes normocephalic Ears: external ears normal and TM's normal bilaterally Face and sinus: No sinus tenderness Mouth: Normal oral and palatal mucosa present and tongue normal Teeth and gingiva: dentition normal and gingiva normal Throat: Yes posterior oropharynx normal, Yes tonsils normal and Yes uvula midline Eyes Conjunctivae: conjunctivae normal Sclerae: sclerae normal Pupils: Equal, round and reactive pupils present EOM: EOMs intact bilaterally Direct Ophthalmoscopy: No no photophobia Neck Neck: Yes no lymphadenopathy, No tender and Yes no JVD Thyroid: Thyroid normal Carotids: no bruits Chest Chest palpation & inspection: no tenderness Resp Effort & Inspection: normal respiratory effort, no audible wheezes, not labored and no stridor Auscultation: no crackles, no rales, no rhonchi and no wheezes Cardio Jugular venous distension: no JVD Rate: regular rate, not bradycardic and not tachycardic Rhythm: regular rhythm Bruits: no carotid bruits Peripheral pulses: Peripheral pulses 2+ throughout GI Inspection: Yes normal to inspection, No abdominal wall ecchymosis and No visible herniation Palpation (GI): Soft to palpation, nontender, no guarding, not rigid and No hepatosplenomegaly present Auscultation: normoactive bowel sounds General: Yes no CVA tenderness Back/Spine/Pelvis Back: no CVA tenderness and No back tenderness Cervical Spine: cervical ROM normal Thoracic/Lumbar Spine: thoracic and lumbar spine normal to inspection, straight leg raise negative bilaterally, No thoraco-lumbar ROM limited and No lumbar spinal tenderness Skin Lesions: no lesions Rashes: no rashes Wounds: no wounds Neuro General: oriented to person, oriented to place, patient oriented x3, CN's II-XI intact bilaterally and No confusion Cranial nerves: Yes Equal, round and reactive pupils present and Yes Normal accommodation reflex present Cognition (Neuro): normal cognition Speech: No Abnormal speech present Gait exam (Neuro): Normal gait present Motor exam (neuro): 5/5 motor strength present throughout Extrem Right upper extremity: full ROM; no cyanosis Left upper extremity: full ROM; no cyanosis Right lower extremity: no edema Left lower extremity: no edema Psych Appearance: grossly normal Mental Status: mental status grossly normal Affect: normal affect Attitude: cooperative Thought process: Normal thought process present Coding Level of Care Code Est Pt Prev Care 18-39y(38154) Diagnoses Annual physical exam Z00.00 Major depressive disorder, recurrent episode with atypical features F33.9 Bipolar II disorder F31.81 Additional Codes JAVED-7 Assessment Billing - JAVED-7 Assessment Tool: JAVED-7 Assessment 41345 ([id number]) PHQ-9 - 35183 - PHQ-9 Billing: Yes ([id number]) Assessment & Plan Assessment & Plan (1) Annual physical exam: Code(s): Z00.00 - Encounter for general adult medical examination without abnormal findings Category: Medical Plan: As per HPI (2) Major depressive disorder, recurrent episode with atypical features: Code(s): F33.9 - Major depressive disorder, recurrent, unspecified Category: Medical Plan: Patient's PHQ-9 score positive for mild depression which has been existing condition for her. She does follow a mental health therapist and a psychiatrist. She is not interested in any mental health medications. (3) Bipolar II disorder: Code(s): F31.81 - Bipolar II disorder Category: Medical Plan: Patient has a history of bipolar type 2 disorder and was on lamotrigine in the past for mood stabilization. She felt the medication was not working for her and under supervision of a psychiatrist she was able to wean completely off of medication. Orders: Orders Vitamin D 25-OH Total 02/16/25 E55.9 - Vitamin D deficiency, unspecified Complete Blood Count no Diff 02/16/25 Z13.1 - Encounter for screening for diabetes mellitus Comprehensive [place]. Panel Fast 02/16/25 Z13.1 - Encounter for screening for diabetes mellitus
--- OUTSIDE RECORDS SUMMARY | 2025-02-16 19:33 | XMS_ITS | Encounter Summary ---
Author Organization [facility] Address [address] [place] [id number] Phone Care Team Providers Care Video Production Engineer Name Role Phone Pcp, Unknown Primary Care Provider Unavailabl e Encounter Details Date Type Department Care Team ([facility] st Contact Info) Description 08/06/2023 Procedure Pass OR Admitting Dept - Virtual Department [address] [place] [address] Social History Tobacco Use Types Packs/Day Years Used Date Smoking Tobacco: Never Smokeless Tobacco: Never Alcohol Use Standard Drinks/Week Comments Never 0 (1 standard drink = 0.6 oz pur e alcohol) Education Answer Date Recorded Are you interested in more education? Not on isaac e 06/05/2023 Are you concerned about learning? Not on file 06/05/2023 No 06/05/2023 No 06/05/2023 Digital Access Answer Date Recorded No 06/05/2023 No 06/05/2023 Reliable internet access at home? Not on file 06/05/2023 Device with a working camera? Not on file Intimate Partner Violence Answer Date R ecorded Are you denied basic needs s uch as food, clothing, or medical care? No 08/06/2023 In the past 12 months have y ou been in a relationship with a person who hurts, threatens, or tries to control you? No 08/06/2023 Are you denied basic needs s uch as food, clothing, or medical care? No 08/06/2023 In the past 12 months have y ou been in a relationship with a person who hurts, threatens, or tries to control you? No 08/06/2023 Comments No Sex and Gender Information Value Date Recorded Sex Assigned at Not on file Legal Sex Female 9:47 AM EST Gender Identity Not on file Sexual Orientation Not on file documented as of this encounter Plan of Treatment Not on file documented as of this encounter Visit Diagnoses Not on filedocumented in this encounter Care Teams Video Production Engineer Relationship Specialty Start Date End Date Pcp, Unknown PCP - General 06/05/23 documented as of this encounter Additional Source Comments The information contained in this document represents components of the legal health record. It is not the complete legal health record.[facility]
--- OUTSIDE RECORDS SUMMARY | 2025-02-16 19:33 | XMS_ITS | Clinical Summary ---
Author Organization [facility] Address [address] [place] [address] Care Team Providers Care Manager Life Name Role Phone Michael Wiseman MD Primary Care Provider Surgical History Surgery Date Site/Laterality Comments BREAST REDUCTION 05/2016 PROCEDURE: [place] BREAST REDUCTION; COMMENT: Dr. Mcguire Medical History Medical History Date Comments ADD (attention deficit disorder) 02/04/2013 DX:ADD (attention deficit disorder) Depression 02/04/2013 DX:Depression Family History Medical History Relation Name Comments Heart attack Maternal Grandfather Heart failure Maternal Grandfather Diabetes Maternal Grandmother Heart attack Paternal Grandfather Breast cancer Neg Hx Colon cancer Neg Hx Ovarian cancer Neg Hx Pancreatic cancer Neg Hx Prostate cancer Neg Hx Uterine cancer Neg Hx Relation Name Status Comments Father Alive Maternal Grandfather Maternal Grandmother Alive Mother Alive Paternal Grandfather Paternal Grandmother Social History Tobacco Use Types Packs/Day Years Used Date Smoking Tobacco: Never Smokeless Tobacco: Never Alcohol Use Standard Drinks/Week Comments Yes 0 (1 standard drink = 0.6 oz pur e alcohol) Comments Unknown Sex and Gender Information Value Date Recorded Sex Assigned at Not on file Legal Sex Female 12:18 AM EST Gender Identity Not on file Sexual Orientation Not on file Obstetrics History Last Filed Vital Signs Vital Sign Reading Time Taken Comments Blood Pressure 129/64 07/31/2023 9:53 AM EDT Pulse 63 07/31/2023 9:53 AM EDT Temperature - - Respiratory Rate - - Oxygen Saturation - - Inhaled Oxygen Concentration - - Weight 83.9 kg (185 lb) 07/31/2023 9:53 AM EDT Height 175.3 cm (5' 9 ) 05/30/2022 10:00 AM EST Body Mass Index 27.32 05/30/2022 10:00 AM EST Plan of Treatment Health Maintenance Due Date Last Done Comments DTaP,Tdap,and Td Vaccines (1 - Tdap) 2016 Hepatitis B Vaccines (1 of 3 - 19+ 3-dose series) 2016 HIV Screening 04/12/2022 Hepatitis C Screening 04/12/2022 Social Influencers of Health Screening 04/12/2022 Depression Screening 05/04/2024 HPV Vaccines (1 - 3-dose SCD M series) 2024 COVID-19 Vaccine (1 - 2023-2 5 season) 2025 Influenza Vaccine (#1) 2025 Cervical Cancer Screening: P ap Smear 05/30/2025 05/30/2022, 02/09/2019 RSV Immunization Adult Patients (1 - 1-dose 75+ series) 2072 HIB Vaccines Aged Out No longer eligi ble based on patient's age to complete this topic Hepatitis A Vaccines Aged Out No long er eligible based on patient's age to complete this topic IPV Vaccines Aged Out No longer eligi ble based on patient's age to complete this topic MMR Vaccines Aged Out No longer eligi ble based on patient's age to complete this topic Meningococcal ACWY Vaccine Aged Out N o longer eligible based on patient's age to complete this topic Meningococcal B Vaccine Aged Out No l onger eligible based on patient's age to complete this topic Pneumococcal Vaccine: Pediatrics (0 to 5 Years) and At-Risk Patients (6 to 49 Years) Aged Out No longer eligible b ased on patient's age to complete this topic RSV Immunization Patients Under 20 months Aged Out No longer eligible b ased on patient's age to complete this topic Varicella Vaccines Aged Out No longer eligible based on patient's age to complete this topic Procedures Procedure Name Priority Date/Time Associated Diagnosis Comments PAP SMEAR Routine 05/30/2022 from Last 3 Months or Most Recently Relevant to Health Maintenance Results * Pap smear (05/30/2022) 05/30/2022 Narrative HISTORICAL TESTING LAB RESULTING AGENCY - 06/09/2022 7:31 AM EST [id number] THINPREP PAP, IMAGED: NEGATIVE FOR SQUAMOUS INTRAEPITHELIAL LESION AND MALIGNANCY . FUNGAL ORGANISMS MORPHOLOGICALLY CONSISTENT WITH NATASHA SPP. SYD URIAS , CHANDRIKA(ASCP) (CASE ELECTRONICALLY SIGNED 06 08 2022) ADEQUACY: SATISFACTORY ENDOCERVICAL/TRANSFORMATION ZONE COMPONENT PRESENT. SOURCE: THINPREP PAP HPV IF ASCUS: REFLEX 16 AND 18, CERVICAL, IMAGED CLINICAL INFORMATION: PAP HX: NEGATIVE, HPV IF DIAGNOSIS OF ASCUS. [id number] Rebecca Curran CN LAB CYTOLOGY ORDERABLES Final R esult HISTORICAL TESTING LAB RESULTING AGENCY from Last 3 Months or Most Recently Relevant to Health Maintenance Care Teams Manager Life Relationship Specialty Start Date End Date Michael Wiseman MD [address] [place] [address] Dr [address] [place] PCP - General Internal Medicine 06/28/20
--- OUTSIDE RECORDS SUMMARY | 2025-02-16 19:33 | XMS_ITS | Patient Health Record ---
Author Organization [facility] Address [address] [facility] [address] [place], [place] [id number] Care Team Providers Care Cleat Thrower Name Role Phone Kishan Woodard Primary Care Provider Regina Cheng Unavailable [phone] Allergies No Known Allergies Reason For Referral No Information Medications Medication SIG (Take, Route, Frequency, Duration) [...] discontinue and re-order from Quick Search* Unknown Social History Tobacco Use: Social History Observation Description Date Details (start date - stop date) Never Smoker NA - NA Social History Social History Social Info Question Answer Notes Smoking status: Additional Findings: Tobacco Non-User Current non-smoker Are you a: Never smoker Alcohol consumption: Did you have a drink contai jordy alcohol in the past year? Yes How many drinks did you have on a typical day when you were drinking in the past year? 1 or 2 (0 points) How often did you have a drink containing alcohol in the past year? Two to four times a month (2 points) Problems Problem Type SNOMED Code ICD Code Onset Dates Problem Status W/U Status Risk Notes Problem Chronic tonsillitis (54588514) Chronic tonsillitis (J35.01) Active confirmed Problem Tonsil stone (5591577) Tonsil stone (J35.8) Active confirmed Plan Of Treatment No Information Insurance Providers Payer Name Payer Address Payer Phone Subscriber Number Group Number Insured Name Patient Relationship to Insured Coverage Start Date Coverage End Date [facility] Blue Card [address] [place] [address] [id number] Daisy Hernandez Self - patient is the insured Medical (General) History Medical History History ICD Code Mental Illness migraine headache seasonal allergies Surgical History Surgery Date(Month/Year) No pertinent surgical history
--- OUTSIDE RECORDS SUMMARY | 2025-02-16 19:33 | XMS_ITS | Clinical Summary ---
Author Organization [facility] Address Counts include 234 beds at the [facility] [employer] [address] [address] Phone Care Team Providers Care Search Engine Marketing Specialist Name Role Phone Pcp, Unknown Primary Care Provider Unavailabl e Allergies No known active allergies Medications lamoTRIgine (LAMICTAL) 150 MG IMMEDIATE release tablet Take 150 mg by mouth daily. 06/10/2023 Active oxyCODONE 5 MG immediate release tablet Take 1 tablet (5 mg total) by mouth every 4 (four) hours as needed. Partial fill ok 10 tablet 08/06/2023 Active Active Problems Problem Noted Date Diagnosed Date Unwanted fertility 08/06/2023 Family History Relation Status Comments Brother Alive Father Alive Mother Alive Sister 1 Alive Sister 2 Alive Sister 3 Alive Sister 4 Alive Social History Tobacco Use Types Packs/Day Years Used Date Smoking Tobacco: Never Smokeless Tobacco: Never Tobacco Cessation:Counseling Given: Not Answered Alcohol Use Standard Drinks/Week Comments Never 0 [...] on file Sexual Orientation Not on file Last Filed Vital Signs Vital Sign Reading Time Taken Comments Blood Pressure 118/70 08/06/2023 1:30 PM EDT Pulse 60 08/06/2023 1:30 PM EDT Temperature 36.6 C (97.9 F) 08/06/2023 1:00 PM EDT Respiratory Rate 16 08/06/2023 1:30 PM EDT Oxygen Saturation 99% 08/06/2023 1:30 PM EDT Inhaled Oxygen Concentration - - Weight 83 kg (183 lb) 08/06/2023 8:40 AM EDT Height 175.3 cm (5' 9 ) 08/06/2023 8:40 AM EDT Body Mass Index 27.02 08/06/2023 8:40 AM EDT Plan of Treatment Health Maintenance Due Date Last Done Comments DEPRESSION SCREENING 2009 HEPATITIS C SCREENING 11/23/2015 HIV ONE-TIME SCREENING (18-65 YEARS) 11/23/2015 PAP SMEAR 2018 INFLUENZA VACCINE (#1) 2024 3, 02/25/2021, 12/28/2018, Additional history exists COVID-19 VACCINE (2024- season) 2025 05/11/2021 Adult Td,Tdap Booster 10/04/2028 10/04/2018 HEPATITIS A VACCINES Aged Out 05/07/2018, 10/24/19 20 No longer eligible based on patient's age to complete this topic SMOKING STATUS SCREENING (Once After 26 Yrs) Completed 08/06/2023 HIB VACCINES Aged Out No longer eligi ble based on patient's age to complete this topic MENINGOCOCCAL VACCINES (ACWY) Aged Out No longer eligible based on patient's age to complete this topic MENINGOCOCCAL VACCINES (B) Aged Out N o longer eligible based on patient's age to complete this topic PNEUMOCOCCAL VACCINES (0-49 years) Aged Out No longer eligible based on patient's age to complete this topic Medical Devices Not on file Insurance PPO EPO PPO EPO PPO EPO PPO EPO PPO EPO [facility] PPO EPO Advance Directives For more information, please contact: [phone] (9AM - 5PM [place], Thursday-Thursday) * Full Code (Latest Code Status on File) Date Activated Date Inactivated Comments 08/06/2023 8:29 AM Question Answer Comments Code Status Confirmed With: Patient Care Teams Search Engine Marketing Specialist Relationship Specialty Start Date End Date Pcp, Unknown PCP - General 06/05/23 Additional Source Comments The information contained in this document represents components of the legal health record. It is not the complete legal health record.[facility]
== END 2025-02-16 16:24 | disposition home or self-care (01) ==
LOC: HO.HMCH 15:52
PROVIDERS: PCP Physician Assistant; Visit Provider Physician Assistant
DX: Z00.00 Encounter for general adult medical examination without abnormal findings (principal); F31.81 Bipolar II disorder

== ENCOUNTER → 2025-02-16 15:51 | Outpatient (BNVA) | payer BC, SELFPAY | PROVIDERS: PCP Physician Assistant; Visit Provider Physician Assistant | DX: Z00.00 Encounter for general adult medical examination without abnormal findings (principal); F90.9 Attention-deficit hyperactivity disorder, unspecified type; F31.81 Bipolar II disorder; E55.9 Vitamin D deficiency, unspecified | CPT/HCPCS: 96127 ==